=== PATIENT | male | born 1965 ===

== ENCOUNTER 2020-05-21 13:38 | Emergency (ER) | payer SELFPAY ==
--- NOTE | 2020-05-21 14:23 | PC.NURSE ---
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 This is ridiculous, we are not waiting here any longer. He came with a BP in the 200's and chest pain and we have had to wait for over an hour. We are leaving. This is just ridiculous. Visitor leaves desk and does not respond to this RN and states to Lets go. Pt leaves with steady gait and unassisted.
== END 2020-05-21 14:30 | disposition left against medical advice (07) ==
DX: Z53.21 Procedure and treatment not carried out due to patient leaving prior to being seen by health care provider (principal)
CPT/HCPCS: 99199